=== PATIENT | female | born 1960 | race Caucasian/White ===

== ENCOUNTER → 2020-08-02 | Outpatient (CLI) | payer SELFPAY ==
--- NOTE | 2020-08-02 18:15 | RAD ---
Examination: XR LUMBAR SPINE 2-3V History: Reason: LOWER BACK PAIN / Spl. Instructions: / History: Comparison/Correlation: None Findings: Frontal and lateral views of the lumbar spine were obtained. Moderate to severe L2-3 disc s pace narrowing is present. L3-4 and L4-5 moderate disc space narrowing present. No fracture or bone f racture. Alignment normal. Vertebral body heights are adequate. Mild to moderate lower lumbar spine f acet joint degenerative change. Surgical clips are noted involving the right lower quadrant and upper pelvic level. Moderate quantity of stool in colon. Impression: Degenerative disc space narrowing. Electronically signed by: Damien Gonzalez MD (08/02/2020 6:13 PM) [id number]
--- NOTE | 2020-08-02 18:16 | RAD ---
Examination: XR CERVICAL SPINE 2-3V History: Reason: NECK PAIN / Spl. Instructions: / History: Comparison/Correlation: None Findings: Frontal and lateral views reveal spine were obtained. Minimal anterolisthesis of C4 in rela tion to C5. Disc spaces are unremarkable. Vertebral body heights are adequate. Spurring of the cervic al spine noted. Slight reversal of cervical lordosis which probably represents an infiltrate is evide nt. Soft tissues are unremarkable. No fracture or bone obstruction. Partially visualized lung apices are unremarkable. Impression: Mild degenerative changes. Electronically signed by: Damien Gonzalez MD (08/02/2020 6:14 PM) [id number]
== END ==
LOC: RAD 09:40
PROVIDERS: ATTEND Family Medicine
DX: M47.812 Spondylosis without myelopathy or radiculopathy, cervical region (principal); M47.816 Spondylosis without myelopathy or radiculopathy, lumbar region; M48.061 Spinal stenosis, lumbar region without neurogenic claudication
CPT/HCPCS: 72040; 72100